=== PATIENT | male | born 1980 | race Caucasian/White ===

== ENCOUNTER 2016-03-14 19:01 | Emergency (ER) | payer OTHER ==
[~2016-03-14] VITALS: Ht 175.3 cm; Wt 75.0 kg
[2016-03-14 19:04] VITALS: Ht 175.3 cm; Wt 75.0 kg
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
[2016-03-14] MEDS ORDERED: AZIT250T94 PO (22:03)
== END 2016-03-14 21:16 | disposition left against medical advice (07) ==
LOC: FTE 19:01
DX: S06.0X0A Concussion without loss of consciousness, initial encounter (principal); F17.210 Nicotine dependence, cigarettes, uncomplicated; Y08.89XA Assault by other specified means, initial encounter
CPT/HCPCS: 99282

== ENCOUNTER 2016-03-14 21:52 | Emergency (ER) | payer OTHER ==
[~2016-03-14] VITALS: Ht 175.3 cm; Wt 65.9 kg
[2016-03-14 21:54] VITALS: Ht 175.3 cm; Wt 65.9 kg
[2016-03-14] MEDS ORDERED: AZIT250T94 PO (22:03)
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
== END 2016-03-14 22:12 | disposition home or self-care (01) ==
LOC: E/R 21:52
DX: J20.9 Acute bronchitis, unspecified (principal); F17.210 Nicotine dependence, cigarettes, uncomplicated
CPT/HCPCS: 99283